=== PATIENT | male | born 1985 | race African-American/Black ===

== ENCOUNTER 2016-06-26 21:44 | Emergency (ER) | payer SELFPAY ==
[~2016-06-26] VITALS: Ht 175.3 cm; Wt 68.0 kg
[2016-06-26] MEDS ORDERED: KETOROLAC 60MG/2ML VIAL IM ONE (22:30)
[2016-06-26] MEDS ORDERED: PROPOFOL 200MG/20ML VIAL IV ONE (23:45)
[2016-06-26] MEDS ORDERED: KETAMINE HCL 50 MG/ML 10ML IV ONE (23:45)
[2016-06-27] MEDS ORDERED: ONDANSETRON HCL 4MG/2ML VIAL IV ONE (02:15)
[2016-06-27] MEDS ORDERED: MORPHINE SULFATE 4 MG/ML CPJ (NOT FOR IM USE) IV ONE (02:15)
[2016-06-27 02:56] VITALS: BP 139/75
== END 2016-06-27 03:21 | disposition home or self-care (01) ==
LOC: ER 21:44
DX: S82.832A Other fracture of upper and lower end of left fibula, initial encounter for closed fracture (principal); F17.210 Nicotine dependence, cigarettes, uncomplicated; Y04.0XXA Assault by unarmed brawl or fight, initial encounter; Y92.018 Other place in single-family (private) house as the place of occurrence of the external cause
CPT/HCPCS: 27840; 73610; 96372; 96374; 96375; 99152; 99285; J1885; J2270; J2405; J3490; Z7610; J2704